=== PATIENT | female | born 1935 | race Asian ===

== ENCOUNTER 2017-11-26 15:37 | Emergency (ER) | payer MEDICARE, OTHER ==
[~2017-11-26] VITALS: Ht 147.3 cm; Wt 39.9 kg
[2017-11-26] MEDS ORDERED: Tetanus/Diptheria/Pertussis Vaccine 0.5ml Syr IM ONE (16:00)
[2017-11-26 16:36] VITALS: BP 108/49
[2017-11-26] MEDS ORDERED: Hydrogen Peroxide 473ml Bottle TOPIC ONE (16:45)
--- NOTE | 2017-11-26 16:52 | Diagnostic Imaging Report ---
Clinical Indication:Pain, dog bite Technique: 3 views of the left wrist Comparison: None Findings: No acute fractures. No dislocations. Bones are osteoporotic. No radiopaque foreign body. There is an old unfused ulnar styloid fracture versus unfused apophysis. Impression: No acute process Osteoporosis Other findings as noted
--- NOTE | 2017-11-26 18:03 | Emergency Room Report ---
History of Present Illness General Chief Complaint: Animal Bite Source: Patient Present Illness HPI 82-year-old female presents to the emergency department for a dog bite that she sustained prior to arrival. Patient reports that her neighbors ronnie bit her in several areas first in the groin then on her leg and last on her left wrist. Patient reports open wounds this most significant ones being on her left wrist. Patient reports pain is 9 out of 10 in severity primarily in her left wrist. Patient reports some bruising. Patient denies neck or back pain she denies loss of consciousness she states she does not know when her last tetanus vaccination was. Patient denies taking blood thinning medications. she denies paresthesias or skin color changes. Patient denies inability to move fingers the left hand. Allergies: Coded Allergies: No Known Allergies (Unverified , 11/26/17) Patient History Past Medical History: see triage record Past Surgical History: none Pertinent Family History: none Now: No Reviewed Nursing Documentation: PMH: Agreed; PSxH: Agreed Nursing Documentation-PMH Hx Cardiac Problems: Yes - high cholesterol Hx Hypertension: Yes Review of Systems All Other Systems: negative except mentioned in HPI Physical Exam Vital Signs Date Time Temp Pulse Resp B/P (MAP) Pulse Ox O2 Delivery O2 Flow Rate FiO2 11/26/17 15:27 98.0 92 18 95 Room Air 98.1 11/26/17 16:36 108/49 Medical Decision Making PA Attestation Dr. [email or web address] is my supervising Physician whom patient management has been discussed with. Diagnostic Impression: Primary Impression: Bite by animal ER Course 82-year-old female presents to the emergency department for a dog bite that she sustained prior to arrival. Patient reports that her neighbors ronnie bit her in several areas first in the groin then on her leg and last on her left wrist. Patient reports open wounds this most significant ones being on her left wrist. Patient reports pain is 9 out of 10 in severity primarily in her left wrist. Patient reports some bruising. Patient denies neck or back pain she denies loss of consciousness she states she does not know when her last tetanus vaccination was. Patient denies taking blood thinning medications. she denies paresthesias or skin color changes. Patient denies inability to move fingers the left hand. Ddx considered but are not limited to Cellulitis, rabies, fracture, neurovascular compromise of extremity. Vital signs: are WNL, pt. is afebrile H&PE are most consistent with multiple wounds from dog bite. ORDERS: X-ray left wrist: negative for infection. ED INTERVENTIONS: Tetanus vaccination is administered. -2 of the lacerations on her left wrist were still bleeding and of significant size. These lacerations will require wound closure. DISCHARGE: At this time pt. is stable for d/c to home. Will provide printed patient care instructions, and any necessary prescriptions. Care plan and follow up instructions have been discussed with the patient prior to discharge. * Augmentin x 7 days. Other X-Ray Diagnostic Results Other X-Ray Diagnostic Results : X-Ray ordered: Left wrist # of Views/Limited Vs Complete: 3 View Indication: Pain EP Interpretation: Yes LISA Xray: Interpretation reviewed, by supervising MD, and agrees with findings. Interpretation: no dislocation, no soft tissue swelling, no fractures Impression: No acute disease Electronically Signed by: Shari Robledo PA-C Last Vital Signs Date Time Temp Pulse Resp B/P (MAP) Pulse Ox O2 Delivery O2 Flow Rate FiO2 11/26/17 16:36 98.6 88 18 108/49 98 Room Air 98.6 Disposition: HOME, SELF-CARE Condition: Stable Scripts Bacitracin/Polymyxin B Sulfate (BACITRACIN-POLYMYXIN OINTMENT) 28.35 Gm Oint...g. 1 APPLIC TP BID, #28.3 GM Prov: Shari Robledo 11/26/17 Acetaminophen* (TYLENOL EXTRA STRENGTH*) 500 Mg Tablet 500 MG ORAL Q6H, #20 TAB 0 Refills Prov: Shari Robledo 11/26/17 Amoxicillin/Potassium Clav 875-125* (AUGMENTIN 875-125 TABLET*) 1 Each Tablet 1 TAB ORAL TWICE A DAY for 7 Days, #14 TAB Prov: Shari Robledo 11/26/17 Patient Instructions: Animal Bite, Contusion, [id number] Additional Instructions: Take medications as directed. Follow up with a Primary Care Provider in 3-5 days, even if your symptoms have resolved. --Please review list of primary care clinics, if you do not already have a primary care provider Return sooner to ED if new symptoms occur, or current symptoms become worse. - Please note that this Emergency Department Report was dictated using [employer] machine repairer helper technology software, occasionally this can lead to erroneous entry secondary to interpretation by the dictation equipment. Shari Robledo Nov 26, 2017 18:03
[2017-11-26] MEDS ORDERED: BACITRACIN-P28.35 GM TP (18:06)
[2017-11-26] MEDS ORDERED: TYLENOL EXTRA500 MG ORAL (18:06)
[2017-11-26] MEDS ORDERED: AUGMENTIN 875-1 EAC1 ORAL (18:06)
[2017-11-26] MEDS ORDERED: Bacitracin Oint UD TOPIC ONE (18:15)
[2017-11-26 18:40] VITALS: BP 108/49
== END 2017-11-26 19:30 | disposition home or self-care (01) ==
LOC: EDBD 15:37 → EMR 19:03
DX: S61.512A Laceration without foreign body of left wrist, initial encounter (principal); W54.0XXA Bitten by dog, initial encounter; Y92.89 Other specified places as the place of occurrence of the external cause; Z23 Encounter for immunization; M81.0 Age-related osteoporosis without current pathological fracture
CPT/HCPCS: 90471; 90715; 99283